=== PATIENT | female | born 1960 | race Caucasian/White ===

== ENCOUNTER 2023-02-23 09:00 | Day surgery (SDC) | payer BC ==
[2023-02-21 16:02] VITALS: BMI 25.8
[2023-02-23] MEDS: CIPROFLOXACIN 0.3% EYE DROPS 5 ML BOTTLE ONE ×3 (09:50→10:00)
[2023-02-23] MEDS: TROPICAMIDE 1% OPHTH SOLN 15 ML BOTTLE ONE ×3 (09:50→10:00)
[2023-02-23] MEDS: PHENYLEPHRINE 2.5% OPTHALMIC DROP 2ML BOTTLE ONE ×3 (09:50→10:00)
[2023-02-23] MEDS: CYCLOPENTOLATE 2% OPHTH SOLN 2 ML BOTTLE ONE ×3 (09:50→10:00)
[2023-02-23 09:58] VITALS: RESP 16
[2023-02-23] MEDS ORDERED: CARBACHOL 0.01% INTRA-OCULAR 1.5 ML VIAL ONE (10:30)
[2023-02-23] MEDS ORDERED: BSS (NA/CA/MG/K) BALANCED SALT SOLUTION OPHTH SOLN 15 ML BOTTLE ONE (10:30)
[2023-02-23] MEDS ORDERED: NEO/POLYMYX B SULF/DEXAMETH OPHTHALMIC 5ML BOTTLE ONE (10:30)
[2023-02-23] MEDS ORDERED: MIDAZOLAM HCL 2 MG/2 ML SINGLE DOSE VIAL ONE (11:31)
[2023-02-23 12:16] VITALS: PULSE 64; TEMP 96
[2023-02-23 12:40] VITALS: BP 122/70
== END 2023-02-23 12:40 | disposition home or self-care (01) ==
LOC: FASU 09:00
PROVIDERS: ATTEND Ophthalmology
PROC: 08RJ3JZ Replacement of Right Lens with Synthetic Substitute, Percutaneous Approach (ICD-10-PCS; principal; 2023-02-23 11:46)
DX: H26.8 Other specified cataract (principal)

== ENCOUNTER 2023-03-16 09:38 | Day surgery (SDC) | payer BC ==
[2023-03-07 13:38] VITALS: BMI 25.8
[2023-03-16] MEDS ORDERED: TETRACAINE 0.5% OPHTH SOLN 2 ML BOTTLE ONE (09:43)
[2023-03-16] MEDS ORDERED: BSS (NA/CA/MG/K) BALANCED SALT SOLUTION OPHTH SOLN 15 ML BOTTLE ONE (09:43)
[2023-03-16] MEDS ORDERED: NEO/POLYMYX B SULF/DEXAMETH OPHTHALMIC 5ML BOTTLE ONE (09:44)
[2023-03-16] MEDS ORDERED: CARBACHOL 0.01% INTRA-OCULAR 1.5 ML VIAL ONE (09:44)
[2023-03-16] MEDS ORDERED: CYCLOPENTOLATE 2% OPHTH SOLN 2 ML BOTTLE ONE (10:26)
[2023-03-16] MEDS ORDERED: TROPICAMIDE 1% OPHTH SOLN 15 ML BOTTLE ONE (10:26)
[2023-03-16] MEDS ORDERED: PHENYLEPHRINE 2.5% OPTHALMIC DROP 2ML BOTTLE ONE (10:27)
[2023-03-16] MEDS ORDERED: PHENYLEPHRINE 2.5% OPHTH SOLN 15 ML BOTTLE OS ONE ×3 (11:00→11:10)
[2023-03-16] MEDS ORDERED: CIPROFLOXACIN 0.3% EYE DROPS 5 ML BOTTLE OS ONE (11:00)
[2023-03-16] MEDS ORDERED: CYCLOPENTOLATE 2% OPHTH SOLN 2 ML BOTTLE OS ONE ×3 (11:00→11:10)
[2023-03-16] MEDS: CIPROFLOXACIN 0.3% EYE DROPS 5 ML BOTTLE ONE ×2 (11:05→11:10)
[2023-03-16] MEDS ORDERED: TROPICAMIDE 1% OPHTH SOLN 15 ML BOTTLE OS ONE ×2 (11:05→11:10)
[2023-03-16 11:07] VITALS: RESP 18
[2023-03-16] MEDS ORDERED: MIDAZOLAM HCL 2 MG/2 ML SINGLE DOSE VIAL ONE ×2 (11:23→11:45)
[2023-03-16 12:13] VITALS: TEMP 98
[2023-03-16 12:29] VITALS: BP 128/79; PULSE 74
== END 2023-03-16 13:10 | disposition home or self-care (01) ==
LOC: FASU 09:38
PROVIDERS: ATTEND Ophthalmology
PROC: 08RK3JZ Replacement of Left Lens with Synthetic Substitute, Percutaneous Approach (ICD-10-PCS; principal; 2023-03-16 11:48)
DX: H26.8 Other specified cataract (principal)
CPT/HCPCS: 66984; V2632